=== PATIENT | female | born 1995 ===

== ENCOUNTER 2018-07-15 | Emergency (ER) | payer SELFPAY ==
[2018-07-15 00:43] LABS: HCG,QUALITATIVE URINE POSITIVE (NEGATIVE)
[2018-07-15 00:49] LABS: SQUAMOUS EPITHIAL 1 /hpf (0-5); URINE AMORPHOUS SEDIMENT RARE /ul (<OCC); URINE BACTERIA RARE (<OCC); URINE BILIRUBIN NEGATIVE (NEGATIVE); URINE BLOOD NEGATIVE (NEGATIVE); URINE CLARITY Hazy (Clear); URINE COLOR Yellow (YELLOW); URINE GLUCOSE (UA) NORMAL (Normal); URINE LEUKOCYTE ESTERASE NEG Leu/uL (Negative); URINE PROTEIN NEGATIVE (NEGATIVE); URINE UROBILINOGEN NORMAL mg/dL (0.2-1.0)
[2018-07-15] MEDS ORDERED: Sodium Chloride 0.9% 1,000 ML IV STA (01:27)
[2018-07-15 01:50] LABS: BASO # 0.1 K/uL (0.0-0.2); BASO % 1.1 % (0.0-2.0); EOS # 0.1 K/uL (0.0-0.7); EOS % 0.6 % (0.0-4.0); HEMOGLOBIN 12.4 g/dL (11.0-16.0); LYMPH # 3.1 K/uL (1.0-4.3); MEAN CELL VOLUME 81.2 fL (81.0-99.0); MEAN CORPUSCULAR HEMOGLOBIN 26.8 pg (27.0-31.0); MEAN PLATELET VOLUME 9.6 fL (7.2-11.7); MONO # 0.8 K/uL (0.0-0.8); MONO % 6.3 % (0.0-10.0); NEUT # 8.4 K/uL (1.8-7.0); RBC 4.65 Mil/uL (3.80-5.20); RED CELL DISTRIBUTION WIDTH 12.9 % (11.5-14.5); WHITE BLOOD COUNT 12.6 K/uL (4.8-10.8)
--- NOTE | 2018-07-15 02:02 | C.PDOC ---
History Of Present Illness 23 year old female, who is currently around 7 weeks (), presents to the ED for evaluation of vomiting associated with lower abdominal pain which began today. Patient also reports she had a nose bleed earlier today, which has since resolved. Patient has been taking vitamins. Patient denies vaginal bleeding and diarrhea at this time. Time Seen by Provider: 07/15/18 00:50 Chief Complaint (Nursing): GI Problem History Per: Patient History/Exam Limitations: no limitations Onset/Duration Of Symptoms: Hrs Current Symptoms Are (Timing): Still Present Additional History Per: Patient Past Medical History Reviewed: Historical Data, Nursing Documentation, Vital Signs Vital Signs: Last Vital Signs Temp 98.2 F 07/15/18 00:06 Pulse 80 07/15/18 00:06 Resp 14 07/15/18 00:06 BP 107/70 07/15/18 00:06 Pulse Ox 99 07/15/18 00:06 - Medical History PMH: No Chronic Diseases Surgical History: No Surg Hx Family History: States: Unknown Family Hx - Social History Hx Alcohol Use: No Hx Substance Use: No - Immunization History Hx Tetanus Toxoid Vaccination: No Hx Influenza Vaccination: No Hx Pneumococcal Vaccination: No Review Of Systems Except As Marked, All Systems Reviewed And Found Negative. Gastrointestinal: Negative for: Diarrhea Genitourinary: Negative for: Vaginal Bleeding Physical Exam - Physical Exam Additional Physical Exam Comments: Constitutional: No acute distress. Head: Normocephalic. Atraumatic. Eyes: PERRL. ENT: Moist mucous membranes. No active epistaxis. Neck: Supple. Cardiovascular: Regular rate. Radial pulse 2+ bilaterally. Chest: No tenderness. Respiratory: Clear to auscultation bilaterally. GI: Soft. Nontender. Nondistended. Back: No CVA tenderness. Musculoskeletal: No tenderness or swelling of extremities. Skin: No rash. Neurologic: Alert, no focal deficit. ED Course And Treatment - Laboratory Results Result Diagrams: 07/15/18 01:48 07/15/18 01:48 Lab Results: Urine Color Yellow (YELLOW) 07/15/18 00:39 Urine Clarity Hazy (Clear) 07/15/18 00:39 Urine pH 7.0 (5.0-8.0) 07/15/18 00:39 Ur Specific [place] 1.014 (1.003-1.030) 07/15/18 00:39 Urine Protein Negative mg/dL (NEGATIVE) 07/15/18 00:39 Urine Glucose (UA) Normal mg/dL (Normal) 07/15/18 00:39 Urine Ketones Negative mg/dL (NEGATIVE) 07/15/18 00:39 Urine Blood Negative (NEGATIVE) 07/15/18 00:39 Urine Nitrate Negative (NEGATIVE) 07/15/18 00:39 Urine Bilirubin Negative (NEGATIVE) 07/15/18 00:39 Urine Urobilinogen Normal mg/dL (0.2-1.0) 07/15/18 00:39 Ur Leukocyte Esterase Neg Kristan/uL (Negative) 07/15/18 00:39 Urine WBC (Auto) 11 /hpf (0-5) H 07/15/18 00:39 Urine RBC (Auto) < 1 /hpf (0-3) 07/15/18 00:39 Ur Squamous Epith Cells 1 /hpf (0-5) 07/15/18 00:39 Amorphous Sediment Rare /ul (<OCC) H 07/15/18 00:39 Urine Bacteria Rare (<OCC) 07/15/18 00:39 Urine HCG, Qual Positive (NEGATIVE) 07/15/18 00:39 Urine HCG, Qual Positive (NEGATIVE) 07/15/18 00:39 O2 Sat by Pulse Oximetry: 99 (on RA) Pulse Ox Interpretation: Normal Medical Decision Making Medical Decision Making: Progress: Bloodwork, urinalysis and transvaginal ultrasound ordered and reviewed. Pyridoxine PO and IV Fluids given. Ultrasound impression: Single, live intrauterine gestation. No abnormalities seen Labs unremarkable for dehydration. DIscharged home, f/u OBGYN, return to ED for worsening vomiting, pain, fever, or any other problem. Disposition - Disposition Disposition: HOME/ ROUTINE Disposition Time: 03:53 Condition: STABLE Prescriptions: Doxylamine/Pyridoxine HCl (B6) [Hiral Vargas 10-10 mg Tablet] 2 tab PO QPM #60 tablet. Instructions: Nausea and Vomiting of (DC) Forms: [facility] (Croatian) - Clinical Impression Clinical Impression: Vomiting affecting - Scribe Statement The provider has reviewed the documentation as recorded by the Scribe (Beverly Villagomez) Provider Attestation: All medical record entries made by the Scribe were at my direction and personally dictated by me. I have reviewed the chart and agree that the record accurately reflects my personal performance of the history, physical exam, medical decision making, and the department course for this patient. I have also personally directed, reviewed, and agree with the discharge instructions and disposition.
[2018-07-15 02:10] LABS: ALB/GLOB RATIO 1.3 (1.0-2.1); ALT/SGPT 22 U/L (9-52); AST/SGOT 23 U/L (14-36); BLOOD UREA NITROGEN 14 mg/dL (7-17); CALCIUM 9.4 mg/dl (8.6-10.4); GFR NON-AFRICAN AMERICAN > 60; LIPASE 65 U/L (23-300)
[2018-07-15 04:15] VITALS: BP 102/66; PULSE 85; RESP 16; TEMP 98.6; O2SAT 100
--- NOTE | 2018-07-15 16:45 | US ---
Date of service: 07/15/2018 PROCEDURE: OB Pelvic Ultrasound HISTORY: abd pain in , assess cervix 05/25/2018 COMPARISON: None available. FINDINGS: Transabdominal evaluation limited by lack of adequately distended urinary bladder. UTERUS: Gestational sac: Intrauterine gestational sac diameter, 29 mm, equivalent to 7 weeks 5 days. Cedar-rump length 11 mm equal to 7 weeks 1 day. Heart rate: 124 bpm. age (Ultrasound estimated): 7 weeks 3 days Brittany-gestational hemorrhage: None. Date of delivery (Ultrasound estimated) : 02/28/2019 Uterus measures 10.4 x 5.6 x 6.4 cm. Normal in size and appearance. CERVIX: Measures 3.2 cm. Long and closed. No cervical abnormality seen. RIGHT OVARY: Measures 2.6 x 1.6 x 3.1 cm. No mass lesion. Normal flow. Corpus luteum noted, 1.2 x 1.4 x 1.5 cm. LEFT OVARY: Not visualized. FREE FLUID: None. OTHER FINDINGS: None. IMPRESSION: Single live intrauterine gestation of approximately 7 weeks 3 days gestational age. No subchorionic hemorrhage. Cervix long and closed. No adnexal masses. STEPHENIE by ultrasound is 02/28/2019. The preliminary findings for this examination were reported by [facility] at 3:50 a.m. on 07/15/2018. There is concurrence of this report with the preliminary findings.
== END 2018-07-15 04:23 | disposition home or self-care (01) ==
LOC: C.ER
DX: O21.9 Vomiting of pregnancy, unspecified (principal); Z3A.01 Less than 8 weeks gestation of pregnancy
CPT/HCPCS: 76801; 80053; 81001; 83690; 83735; 84100; 84702; 84703; 85025; 86850; 86900; 99284; J7030

== ENCOUNTER 2018-07-30 12:05 | Emergency (ER) | payer SELFPAY ==
[2018-07-30 12:29] VITALS: BMI 32.5
[2018-07-30] MEDS ORDERED: Sodium Chloride 0.9% 1,000 ML ONE (13:53)
[2018-07-30] MEDS: Sodium Chloride 0.9% 1,000 ML IV STA (13:55)
[2018-07-30 14:22] LABS: BASO % 0.1 % (0.0-2.0); EOS % 0.3 % (0.0-4.0); HEMOGLOBIN 13.5 g/dL (11.0-16.0); LYMPH # 2.7 K/uL (1.0-4.3); LYMPH % 22.4 % (20.0-40.0); MEAN CELL VOLUME 81.3 fL (81.0-99.0); MEAN CORPUSCULAR HEMOGLOBIN 26.5 pg (27.0-31.0); MEAN CORPUSCULAR HGB CONC 32.6 g/dL (33.0-37.0); MEAN PLATELET VOLUME 10.4 fL (7.2-11.7); MONO # 0.6 K/uL (0.0-0.8); MONO % 5.3 % (0.0-10.0); NEUT # 8.7 K/uL (1.8-7.0); NEUT % 71.9 % (50.0-75.0); NRBC % 0.1 % (0.0-2.0); RBC 5.09 Mil/uL (3.80-5.20); RED CELL DISTRIBUTION WIDTH 13.3 % (11.5-14.5); WHITE BLOOD COUNT 12.1 K/uL (4.8-10.8)
[2018-07-30 14:34] LABS: SQUAMOUS EPITHIAL 1 /hpf (0-5); URINE AMORPHOUS SEDIMENT MODERATE /ul (<OCC); URINE BACTERIA RARE (<OCC); URINE BILIRUBIN NEGATIVE (NEGATIVE); URINE BLOOD NEGATIVE (NEGATIVE); URINE COLOR Yellow (YELLOW); URINE GLUCOSE (UA) NORMAL (Normal); URINE LEUKOCYTE ESTERASE NEG Leu/uL (Negative); URINE PROTEIN NEGATIVE (NEGATIVE); URINE UROBILINOGEN NORMAL mg/dL (0.2-1.0)
[2018-07-30 14:37] LABS: URINE CLARITY SLIGHT-CLOUDY (Clear)
--- NOTE | 2018-07-30 14:41 | C.PDOC ---
History Of Present Illness Patient is a 23 year old, 9 weeks , who presents to the ED for medical evaluation of vomiting that has become worse since her last visit to the ED 2 weeks ago. Patient states that she was in the ED 2 weeks ago for the same sy mptoms and was discharged with Hiral, coudn't afford it, bought separately OTC analog which has since stopped working for her. She states that she almost cannot keep any PO intake down. US done 2 weeks ago showed no abnormalities, was 7 weeks. She denies any fever, SOB, CP, diarrhea, or vaginal bleeding. Time Seen by Provider: 07/30/18 12:52 Chief Complaint (Nursing): GI Problem History Per: Patient History/Exam Limitations: no limitations Onset/Duration Of Symptoms: Days (2 weeks ) Current Symptoms Are (Timing): Still Present Associated Symptoms: Vomiting. denies: Fever, Diarrhea, Chest Pain Recent travel outside of the [place]: No Additional History Per: Patient Abnormal Vaginal Bleeding: No Past Medical History Reviewed: Historical Data, Nursing Documentation, Vital Signs Vital Signs: Last Vital Signs Temp 98.9 F 07/30/18 12:29 Pulse 78 07/30/18 12:29 Resp 16 07/30/18 12:29 BP 118/73 07/30/18 12:29 Pulse Ox 100 07/30/18 12:29 - Medical History PMH: No Chronic Diseases Surgical History: No Surg Hx Family History: States: Unknown Family Hx - Social History Hx Alcohol Use: No Hx Substance Use: No - Immunization History Hx Tetanus Toxoid Vaccination: No Hx Influenza Vaccination: No Hx Pneumococcal Vaccination: No Review Of Systems Constitutional: Negative for: Fever Cardiovascular: Negative for: Chest Pain Respiratory: Negative for: Shortness of Breath Gastrointestinal: Positive for: Vomiting. Negative for: Diarrhea Genitourinary: Negative for: Vaginal Bleeding Physical Exam - Physical Exam Appears: Non-toxic, No Acute Distress Skin: Normal Color, Warm, Dry Head: Atraumatic, Normacephalic Neck: Normal ROM, Supple Chest: Symmetrical, No Deformity Cardiovascular: Rhythm Regular, No Murmur Respiratory: Normal Breath Sounds, No Rales, No Rhonchi, No Wheezing Gastrointestinal/Abdominal: Soft, No Tenderness, No Guarding, No Rebound Extremity: Normal ROM Neurological/Psych: Oriented x3, Normal Speech, Normal Cognition ED Course And Treatment - Laboratory Results Result Diagrams: 07/30/18 14:08 07/30/18 14:08 O2 Sat by Pulse Oximetry: 100 (on RA) Pulse Ox Interpretation: Normal Progress Note: Plan: Labs. Urinalysis. Urinalysis HCG. IV Fluids. Zofran 4m g IVP. US done 2 weeks ago showed IUP, 7 wks w/o abnormalities. On re- evaluation patient feels better, labs w/o acute abnormalities, no signs of dehydration, negative ketons, no electrolyte abnormalities. Patient is stable to be d/c home on Zofran/reglan. Patient was instructed to return to ED if feel worse. Recommended OBGYN f/u JUAN. Disposition - Disposition Disposition: HOME/ ROUTINE Disposition Time: 16:49 Condition: IMPROVED Additional Instructions: Follow up with OBGYN within 2-3 days. Return to ED if feel worse. Prescriptions: Metoclopramide [Reglan] 1 tab PO TID PRN #25 tab PRN Reason: Nausea/Vomiting Ondansetron ODT [Zofran ODT] 4 mg PO Q6 #20 odt Instructions: Nausea and Vomiting of (DC) Forms: [facility] (Tunisian), Work Excuse - Clinical Impression Clinical Impression: Vomiting affecting - PA / GLAZE GRINDER / Resident Statement MD/DO has examined the patient and agrees with the treatment plan. - Scribe Statement The provider has reviewed the documentation as recorded by the Delonte Shelby All medical record entries made by the Ferdinandibastrid were at my direction and personally dictated by me. I have reviewed the chart and agree that the record accurately reflects my personal performance of the history, physical exam, medical decision making, and the department course for this patient. I have also personally directed, reviewed, and agree with the discharge instructions and disposition.
[2018-07-30 15:04] LABS: ALB/GLOB RATIO 1.3 (1.0-2.1); ALBUMIN 4.5 g/dL (3.5-5.0); ALT/SGPT 14 U/L (9-52); AST/SGOT 34 U/L (14-36); BLOOD UREA NITROGEN 10 mg/dL (7-17); CALCIUM 9.5 mg/dl (8.6-10.4); GFR NON-AFRICAN AMERICAN > 60; LIPASE 74 U/L (23-300)
[2018-07-30 16:19] VITALS: BP 103/70; PULSE 84; RESP 20; TEMP 97.9
[2018-07-30 16:52] VITALS: O2SAT 100
== END 2018-07-30 17:08 | disposition home or self-care (01) ==
LOC: C.ER 12:05
DX: O21.9 Vomiting of pregnancy, unspecified (principal); Z3A.09 9 weeks gestation of pregnancy
CPT/HCPCS: 80053; 81001; 82009; 83690; 84702; 85025; 96361; 96374; 99284; J2405; J7030

== ENCOUNTER 2018-09-16 08:12 | Emergency (ER) | payer SELFPAY ==
[2018-09-16 08:12] VITALS: BMI 32.5
[2018-09-16] MEDS ORDERED: Sodium Chloride 0.9% 1,000 ML IV ONE (08:33)
--- NOTE | 2018-09-16 08:38 | C.PDOC ---
History Of Present Illness 23 years old female g1, LMP 05/25/18, currently 16 weeks , presents to ED for complaints of headache, body aches, sore throat, and cough that began 4-5 days ago. Patient also reports associated nausea and vomiting; usually related. Denies fever, abdominal pain, vaginal bleeding, or any other complaints. Patient reports she was prescribed reglan and has been compliant but "can't keep it down because of the vomiting, I also tried Tylenol and nothing is working." Time Seen by Provider: 09/16/18 08:20 Chief Complaint (Nursing): Flu-like Symptoms History Per: Patient History/Exam Limitations: no limitations Onset/Duration Of Symptoms: Days (5) Current Symptoms Are (Timing): Still Present Location Of Pain: Throat, Headache Sick Contacts (Context): None Associated Symptoms: Sore Throat, Cough, Nausea, Vomiting. denies: Fever, Chills Ear Symptoms: Bilateral: None Recent travel outside of the [place]: No Past Medical History Reviewed: Historical Data, Nursing Documentation, Vital Signs Vital Signs: Last Vital Signs Temp 98.2 F 09/16/18 08:15 Pulse 98 H 09/16/18 08:15 Resp 20 09/16/18 08:15 BP 110/71 09/16/18 08:15 Pulse Ox 98 09/16/18 08:15 - Medical History PMH: No Chronic Diseases Surgical History: No Surg Hx Family History: States: Unknown Family Hx - Social History Hx Alcohol Use: No Hx Substance Use: No - Immunization History Hx Tetanus Toxoid Vaccination: No Hx Influenza Vaccination: No Hx Pneumococcal Vaccination: No Review Of Systems Constitutional: Negative for: Fever, Chills Gastrointestinal: Positive for: Nausea, Vomiting. Negative for: Abdominal Pain, Diarrhea Genitourinary: Negative for: Vaginal Bleeding Musculoskeletal: Positive for: Other (Bodyaches ) Skin: Negative for: Rash Neurological: Positive for: Headache. Negative for: Weakness, Numbness Physical Exam - Physical Exam Appears: Non-toxic, No Acute Distress, Other (Uncomfortable ) Skin: Normal Color, Warm, Dry, No Rash Head: Atraumatic, Normacephalic Eye(s): bilateral: Normal Inspection, PERRL, EOMI Ear(s): Bilateral: Normal Oral Mucosa: Moist Throat: Normal, No Erythema, No Exudate, No Drooling, No Mass Neck: Normal ROM, Supple Chest: Symmetrical, No Tenderness Cardiovascular: Rhythm Regular, No Murmur Respiratory: Normal Breath Sounds, No Rales, No Rhonchi, No Wheezing, Other (Cough ) Gastrointestinal/Abdominal: Bowel Sounds (Normal ), Soft, No Tenderness Extremity: Normal ROM Extremity: Bilateral: Atraumatic, Normal Color And Temperature, Normal ROM Pulses: Left Radial: Normal, Right Radial: Normal Neurological/Psych: Oriented x3, Normal Speech Gait: Steady ED Course And Treatment - Laboratory Results Result Diagrams: 09/16/18 08:47 09/16/18 08:47 O2 Sat by Pulse Oximetry: 98 (RA) Pulse Ox Interpretation: Normal Medical Decision Making Medical Decision Making: Plan: * Tylenol * IV Fluids * Zofran * Blood work * Urine Culture * Rapid Strep Swab * Flu AB swab * Urinalysis 1029 pt feeling better, no longer nauseous, tolerates po fluids and applesauce. labs normal. neg strep and flu. headache resolved. pt denies dysuria, frequency or urgency; has few wbc and also squamous epithelium. discussed with pt that i will give her rx for macrobid, not to take it until i call her with culture results. patient and understand. Disposition Counseled Patient/Family Regarding: Studies Performed, Diagnosis, Need For Follo wup, Rx Given - Disposition Referrals: [facility] [Outside] [facility] [Outside] Disposition: HOME/ ROUTINE Disposition Time: 10:39 Condition: IMPROVED Additional Instructions: Drink increased fluids and adds plain foods as tolerated. Continue taking metclopramide for nausea if needed. Tylenol for pain. Follow up in medical clinic in a few days. Return to ER for any worse symptoms. Prescriptions: Nitrofurantoin Macrocrystals [Macrobid] 100 mg PO BID #14 cap Instructions: Viral Syndrome (DC) Forms: [facility] (Bengali), General Discharge Instructions - Clinical Impression Clinical Impression: Influenza-like illness - PA / PROVIDER NETWORK MGR / Resident Statement MD/DO has reviewed & agrees with the documentation as recorded. - Scribe Statement The provider has reviewed the documentation as recorded by the Scribe Daja San All medical record entries made by the Scribastrid were at my direction and personally dictated by me. I have reviewed the chart and agree that the record accurately reflects my personal performance of the history, physical exam, medical decision making, and the department course for this patient. I have also personally directed, reviewed, and agree with the discharge instructions and disposition.
[2018-09-16] MEDS ORDERED: Sodium Chloride 0.9% 1,000 ML ONE (08:52)
[2018-09-16 08:57] LABS: BASO # 0.1 K/uL (0.0-0.2); BASO % 0.5 % (0.0-2.0); EOS # 0.1 K/uL (0.0-0.7); EOS % 1.1 % (0.0-4.0); HEMOGLOBIN 12.3 g/dL (11.0-16.0); LYMPH # 2.6 K/uL (1.0-4.3); LYMPH % 24.6 % (20.0-40.0); MEAN CELL VOLUME 79.7 fL (81.0-99.0); MEAN CORPUSCULAR HEMOGLOBIN 27.3 pg (27.0-31.0); MEAN CORPUSCULAR HGB CONC 34.3 g/dL (33.0-37.0); MEAN PLATELET VOLUME 9.7 fL (7.2-11.7); MONO # 0.8 K/uL (0.0-0.8); MONO % 7.5 % (0.0-10.0); NEUT % 66.3 % (50.0-75.0); RBC 4.49 Mil/uL (3.80-5.20); RED CELL DISTRIBUTION WIDTH 13.5 % (11.5-14.5); WHITE BLOOD COUNT 10.5 K/uL (4.8-10.8)
[2018-09-16 09:12] LABS: ALB/GLOB RATIO 1.2 (1.0-2.1); ALBUMIN 3.7 g/dL (3.5-5.0); ALT/SGPT 24 U/L (9-52); AST/SGOT 19 U/L (14-36); BLOOD UREA NITROGEN 10 mg/dL (7-17); CALCIUM 9.4 mg/dl (8.6-10.4); GFR NON-AFRICAN AMERICAN > 60
[2018-09-16 09:21] LABS: SQUAMOUS EPITHIAL 5 /hpf (0-5); URINE BACTERIA FEW (<OCC); URINE BILIRUBIN NEGATIVE (NEGATIVE); URINE BLOOD NEGATIVE (NEGATIVE); URINE CLARITY Hazy (Clear); URINE COLOR Yellow (YELLOW); URINE GLUCOSE (UA) NORMAL (Normal); URINE LEUKOCYTE ESTERASE NEG Leu/uL (Negative); URINE PROTEIN NEGATIVE (NEGATIVE); URINE UROBILINOGEN NORMAL mg/dL (0.2-1.0)
[2018-09-16 09:28] LABS: INFLUENZA A B NEGATIVE FOR FLU A/B (NEGATIVE)
[2018-09-16 09:51] VITALS: PULSE 78; RESP 16; TEMP 97.6
[2018-09-16 10:31] VITALS: BP 105/58; O2SAT 98
== END 2018-09-16 11:15 | disposition home or self-care (01) ==
LOC: C.ER 08:12
DX: O99.512 Diseases of the respiratory system complicating pregnancy, second trimester (principal); J11.1 Influenza due to unidentified influenza virus with other respiratory manifestations; Z3A.16 16 weeks gestation of pregnancy
CPT/HCPCS: 80053; 81001; 85025; 87070; 87086; 87430; 87804; 96361; 96374; 99285; J2405; J7030